=== PATIENT | male | born 1955 ===

== ENCOUNTER 2017-01-03 06:24 | Day surgery (SDC) | payer MEDICARE ==
[2016-12-28 09:30] VITALS: BMI 29.0
[2017-01-03] MEDS ORDERED: Lidocaine 2% Jelly (Uro-Jet) ONE (07:44)
[2017-01-03] MEDS ORDERED: Lactated Ringer's 1,000 ML IV ONE (08:43)
[2017-01-03] MEDS ORDERED: Propofol 10 mg/ml Inj (20 ML) ONE ×2 (08:44→08:51)
[2017-01-03] MEDS ORDERED: Midazolam 2 MG/2 ML VIAL ONE (08:44)
[2017-01-03] MEDS: cefTRIAXone IV 1 gm in Dextros 50 ML IVPB ONE ×2 (08:45→08:57)
[2017-01-03] MEDS: Gentamicin 160 MG in Sodium Chloride 0.9% 100 ML IVPB ONE ×2 (08:49→08:57)
[2017-01-03] MEDS ORDERED: HYDROmorphone 0.5 mg/0.5 ml ISec IVP PRN (09:14)
[2017-01-03] MEDS ORDERED: Dexamethasone 4 mg/1 ml IVP PRN (09:14)
[2017-01-03] MEDS ORDERED: Lactated Ringer's 1,000 ML IV SCH (09:15)
--- NOTE | 2017-01-03 10:08 | OP ---
PROCEDURE DATE: 01/03/2017 PREOPERATIVE DIAGNOSIS: Elevated PSA. POSTOPERATIVE DIAGNOSIS: Elevated PSA. PROCEDURE: Transrectal ultrasound diagnostic, transrectal ultrasound guidance, and prostatic biopsy. SURGEON: Dr. Fischer. DESCRIPTION OF PROCEDURE: The patient was informed preoperatively that in the event he has a postop chills or fevers to immediately go to an Emergency Room. He also confirmed he has not taken any NSAI Ds for over a week. He was brought to the operating room, placed under MAC anesthesia in lithotomy p osition and premedicated with 1 gram of Rocephin and 160 mg of gentamicin IV piggyback. The rectum w as cleansed with Betadine. The transducer, the ultrasound machine was placed in the rectum and scann ing revealed a 31 cm prostate without any focal abnormalities or calcifications. We now performed bi opsy by dividing the prostate into 6 sextants and taking 2 cores per sextant using the ultrasound for guidance. We then maintained mild pressure in the rectum to promote hemostasis and upon removal, no bleeding was noted. The patient tolerated the procedure well. Sergio Fischer MD cc: 66 TT: 01/03/2017 10:07:17 ashley
--- NOTE | 2017-01-03 10:30 | OP ---
PROCEDURE DATE: 01/03/2017 PREOPERATIVE DIAGNOSIS: Elevated PSA. POSTOPERATIVE DIAGNOSIS: Elevated PSA. PROCEDURE: Transrectal prostatic ultrasound diagnostic, transrectal ultrasound prostate guidance, an d prostatic biopsy. SURGEON: Sergio Fischer MD. DESCRIPTION OF PROCEDURE: The patient confirmed preoperatively he has not taken any NSAIDs for over a week. He and his were told that in the unlikely event he has postop high fever or chills to c all me immediately and/or go to the Emergency Room. He was brought to the operating room, placed under MAC anesthesia and premedicated with gentamicin 16 0 mg and Rocephin 1 gram IV piggyback. He was placed in lithotomy position and the rectum was cleans ed with Betadine. The transducer was introduced atraumatically and examination of the prostate revea led calcifications of the left base and in addition, the total volume was 54.8 cm. We now proceeded towards prostate biopsy by dividing the prostate into 6 sextants and 2 biopsy specimens were obtained from each sextant for a total of 12. We maintained moderate pressure with the transducer afterwards to promote hemostasis and upon removal, no significant bleeding was noted. The patient tolerated th e procedure well. Sergio Fischer MD cc: 66 TT: 01/03/2017 10:29:23 ashley
[2017-01-03 11:44] VITALS: BP 117/78; PULSE 66; RESP 15; TEMP 97.4; O2SAT 100
== END 2017-01-03 11:40 | disposition home or self-care (01) ==
LOC: C.SDS 06:24
PROVIDERS: ATTEND Urology
DX: R97.20 Elevated prostate specific antigen [PSA] (principal)
CPT/HCPCS: 55700; 82948; 88305; 88342; J0696; J1580; J7120